=== PATIENT | female | born 1965 | race Caucasian/White ===

== ENCOUNTER 2022-01-04 15:05 | Emergency (ER) | payer OTHER ==
[2022-01-04] MEDS ORDERED: Ondansetron 4 MG Tab.DIS PO ONE ×3 (15:06→20:03)
[2022-01-04] MEDS ORDERED: Meclizine 25 MG Tab PO ONE ×2 (15:06→15:45)
[2022-01-04] MEDS ORDERED: Diazepam 5 MG Tab PO ONE (17:05)
[2022-01-04 18:12] LABS: ESTIMATED GFR 101 mL/min (>60)
[2022-01-04] MEDS ORDERED: hydrOXYzine HCl 50 MG/ML SDV IM ONE (20:04)
[2022-01-04] MEDS ORDERED: Sodium Chloride 0.9% 1,000 ML IV ONE (20:24)
== END 2022-01-04 21:48 | disposition home or self-care (01) ==
LOC: FB.ED 15:05
DX: H83.03 Labyrinthitis, bilateral (principal); H61.23 Impacted cerumen, bilateral; Z20.822 Contact with and (suspected) exposure to COVID-19
CPT/HCPCS: 36415; 69209; 70450; 80048; 96360; 96372; 99283-25; A9270-GY; J3410; J7030; Q0162; U0002

== ENCOUNTER 2022-01-24 18:23 | Emergency (ER) | payer OTHER ==
[2022-01-24] MEDS ORDERED: Diazepam 5 MG Tab PO ONE ×4 (18:24→20:40)
[2022-01-24] MEDS ORDERED: amLODIPine 10 MG Tab PO STA (18:54)
[2022-01-24] MEDS ORDERED: LORazepam 1 MG Tab PO ONE (18:54)
[2022-01-24 19:18] LABS: ESTIMATED GFR 86 mL/min (>60)
== END 2022-01-24 21:00 | disposition home or self-care (01) ==
LOC: FB.ED 18:23
DX: I10 Essential (primary) hypertension (principal); F41.9 Anxiety disorder, unspecified
CPT/HCPCS: 36415; 80048; 85025; 99283; A9270